=== PATIENT | female | born 1990 | race Caucasian/White ===

== ENCOUNTER → 2019-02-28 14:19 | Outpatient (CLI) | payer BC, SELFPAY ==
[2019-03-06 12:10] LABS: HPV Reflexed? NOT INDICATED
== END ==
PROVIDERS: Visit Provider Obstetrics & Gynecology
DX: Z12.4 Encounter for screening for malignant neoplasm of cervix (principal)
CPT/HCPCS: 88175; G0145

== ENCOUNTER → 2020-01-11 | Outpatient (CLI) | payer BC, SELFPAY ==
[2020-01-11 13:14] VITALS: BMI 32.5
[2020-01-11 16:19] LABS: Amphetamine Urine VISTA NEGATIVE (<1000 ng/mL); Barbiturate Urine VISTA NEGATIVE (< 200 ng/mL); Benzodiazepine Urine VISTA NEGATIVE (< 200 ng/mL); Cocaine Urine VISTA NEGATIVE (< 300 ng/mL); Ecstacy Urine VISTA NEGATIVE (< 500 ng/mL); Methadone Urine VISTA NEGATIVE (< 300 ng/mL); PCP Urine VISTA NEGATIVE (< 25 ng/mL); THC Urine VISTA NEGATIVE (< 50 ng/mL); Vista UDS pH Range 6
[2020-01-16 07:44] LABS: Chlamydia By Nucleic Acid AMP Negative (Negative)
[2020-01-16 08:05] LABS: Gonococcus By Nucleic Acid AMP Negative (Negative)
== END | disposition home or self-care (01) ==
LOC: LABSPEC 13:40
PROVIDERS: PCP Family Medicine; Referring Provider Obstetrics & Gynecology; Visit Provider Obstetrics & Gynecology
DX: Z34.00 Encounter for supervision of normal first pregnancy, unspecified trimester (principal)
CPT/HCPCS: 80307; 87086; 87088; 87491; 87591; 88175; G0145

== ENCOUNTER → 2020-02-02 12:55 | Outpatient (CLI) | payer BC, SELFPAY ==
[2020-01-11 13:14] VITALS: BMI 32.5
[2020-02-02] MEDS: Dextrose 5%-Lactated Ringers 1,000 ML 999 ML IV (13:04)
[2020-02-02 13:18] VITALS: BP 104/71; PULSE 84; RESP 16; TEMP 36.5; O2SAT 98; BMI 32.5
[2020-02-02] MEDS: Ondansetron 4 MG/2 ML Vial IV (13:21)
[2020-02-02 14:27] VITALS: BP 114/64; PULSE 72; RESP 18; TEMP 36.7; O2SAT 99
[2020-02-02] MEDS: proMETHazine 25 MG/ML Syringe 12.5 MG IV (14:29)
== END ==
PROVIDERS: PCP Family Medicine; Referring Provider Obstetrics & Gynecology; Visit Provider Obstetrics & Gynecology
DX: K74.60 Unspecified cirrhosis of liver (principal)
CPT/HCPCS: 96361; 96374; 96375; A4216; J2405

== ENCOUNTER → 2020-02-05 10:04 | Outpatient (CLI) | payer BC, SELFPAY ==
[2020-02-02 13:18] VITALS: BMI 32.5
[2020-02-05 10:32] LABS: Absolute Lymphocyte Count 1.93 X10^3/uL (0.83-4.51); Basophil# 0.02 X10^3/uL; Basophil% 0.3 % (0-1); Eosinophil# 0.06 X10^3/uL; Eosinophils% 0.8 % (0-5); Hematocrit 38.3 % (37-47); Hemoglobin 12.8 g/dL (12.0-15.0); Lymphocyte # 1.93 X10^3/ul (4.0); Lymphocyte % 25.5 % (19-41); Mean Corp Hgb Conc 33.4 g/dL (32-36); Mean Corpuscular Hgb 30.3 pg (27.0-32.0); Mean Corpuscular Volume 90.5 fL (81-99); Mean Platelet Vol. 9.1 fl (6.2-12.0); Monocyte# 0.56 X10^3/uL; Monocyte% 7.4 % (0-10); NRBC Flagged by Analyzer 0 % (0-5); Neutrophil # 4.98 X10^3/uL (2.7-7.7); Neutrophil % 65.6 % (47-70); Platelet Count 239 K/mm3 (150-450); RBC Distribution Width SD 39.6 fl (35.1-43.9); Red Blood Count 4.23 M/mm3 (4.2-5.4); White Blood Count 7.6 K/mm3 (4.4-11.0)
[2020-02-05 10:50] LABS: Glucose Challenge Gest 1H 50g 92 mg/dL (70-140)
[2020-02-05 11:23] LABS: HIV - WCH Non-Reactive (Nonreactive); Hepatitis B Surface Antigen Non-Reactive (Nonreactive); Hepatitis C Antibody Non-Reactive (Nonreactive)
[2020-02-08 02:11] LABS: Rapid Plasmin Reagin (RPR) NONREACTIVE (NONREACTIVE)
== END ==
PROVIDERS: PCP Family Medicine; Referring Provider Obstetrics & Gynecology; Visit Provider Obstetrics & Gynecology
DX: O99.210 Obesity complicating pregnancy, unspecified trimester (principal); Z3A.00 Weeks of gestation of pregnancy not specified
CPT/HCPCS: 36415; 82950; 85025; 86592; 86703; 86803; 86850; 86900; 86901; 87340

== ENCOUNTER → 2020-03-19 07:45 | Outpatient (CLI) | payer BC, SELFPAY ==
[2020-02-07 09:11] VITALS: BMI 31.8
[2020-03-04 08:20] VITALS: BMI 31.2
--- NOTE | 2020-03-19 07:46 | US_ITS ---
STUDY: SECOND AND THIRD TRIMESTER OBSTETRICAL ULTRASOUND REASON FOR EXAM: Female, 29 years old ANATOMY LMP: 11/07/2019. TECHNIQUE: Transabdominal and Transvaginal TECHNICAL QUALITY: Adequate. PRIOR ULTRASOUND: None. FINDINGS: There is a single intrauterine fetus. The fetus is in a breech presentation. There is demonstrated cardiac activity with a heart rate of 155 bpm. There is a normal amniotic fluid volume. The largest amniotic fluid pocket measures 4 cm x 4.8 cm. The amniotic fluid index (KEAGAN) is within normal limits. The placenta is posterior in location and is not low lying. There are Grade 1 placental changes. The cervix measures 5.6 cm in length. The adnexal regions are not visualized. BIOMETRY: BPD: 4.29 cm: 18 weeks, 6 days HC: 16.09 cm: 18 weeks, 6 days AC: 13.5 cm: 19 weeks, 0 days FL: 2.78 cm: 18 weeks, 3 days CI: 76.6% FL/BPD: 64.8% FL/HC: FL/AC: 20.5% HC/AC: 1.18 age by current US: 18 weeks, 6 days. INESSA by current US: 08/14/2020. Estimated weight: 258 grams, +/- 38 grams, 33.7 %. Age by LMP: 19 weeks, 0 days. INESSA by LMP: 08/13/2020. ANATOMY: Gender: Male Cranium: Normal lateral ventricles. Normal choroid plexus. Normal cerebellum. Normal cisterna magna. Normal face, nose and lips. Chest: Normal 4-chamber heart. Abdomen/Pelvis: Normal diaphragm. Normal stomach. Normal abdominal wall. Normal cord insertion. Normal 3 vessel cord. Normal kidneys. Normal bladder. Spine: Normal cervical spine. Normal thoracic spine. Normal lumbar spine. Normal sacrum. Extremities: Normal bilateral upper extremities. Normal bilateral lower extremities. US/OB Anatomy Scan IMPRESSION: Single live uterine gestation with mean gestational age of 18 weeks and 6 days. Electronically Signed: Jayy Hernandez, at 12:46 EST , Service support ,
== END ==
PROVIDERS: PCP Family Medicine; Referring Provider Obstetrics & Gynecology; Visit Provider Obstetrics & Gynecology
DX: O32.1XX0 Maternal care for breech presentation, not applicable or unspecified (principal); Z3A.18 18 weeks gestation of pregnancy
CPT/HCPCS: 76805; 76817

== ENCOUNTER → 2020-05-16 09:26 | Outpatient (CLI) | payer OTHER, SELFPAY ==
[2020-05-03 08:34] VITALS: BMI 31.4
[2020-05-16 09:55] LABS: Basophil# 0.03 X10^3/uL; Basophil% 0.4 % (0-1); Eosinophil# 0.04 X10^3/uL; Eosinophils% 0.5 % (0-5); Hematocrit 36.3 % (37-47); Mean Corp Hgb Conc 33.1 g/dL (32-36); Mean Corpuscular Volume 93.8 fL (81-99); Mean Platelet Vol. 9.3 fl (6.2-12.0); Monocyte% 8.2 % (0-10); NRBC Flagged by Analyzer 0 % (0-5); Neutrophil # 5.99 X10^3/uL (2.7-7.7); Neutrophil % 70.4 % (47-70); Platelet Count 276 K/mm3 (150-450); RBC Distribution Width CV 13.5 % (11.6-14.6); RBC Distribution Width SD 46.2 fl (35.1-43.9); Red Blood Count 3.87 M/mm3 (4.2-5.4); White Blood Count 8.5 K/mm3 (4.4-11.0)
[2020-05-16 10:04] LABS: Glucose Challenge Gest 1H 50g 103 mg/dL (70-140)
== END ==
PROVIDERS: PCP Family Medicine; Referring Provider Nurse Practitioner Women's Health; Visit Provider Nurse Practitioner Women's Health
DX: Z13.1 Encounter for screening for diabetes mellitus (principal); Z34.00 Encounter for supervision of normal first pregnancy, unspecified trimester
CPT/HCPCS: 36415; 82950; 85025

== ENCOUNTER → 2020-07-26 16:30 | Outpatient (CLI) | payer OTHER, SELFPAY ==
[2020-07-26 12:54] VITALS: BMI 32.9
== END ==
PROVIDERS: PCP Family Medicine; Referring Provider Obstetrics & Gynecology; Visit Provider Obstetrics & Gynecology
DX: Z34.00 Encounter for supervision of normal first pregnancy, unspecified trimester (principal)
CPT/HCPCS: 87081

== ENCOUNTER → 2020-07-30 11:53 | Outpatient (CLI) | payer OTHER, SELFPAY ==
[2020-07-26 12:54] VITALS: BMI 32.9
--- NOTE | 2020-07-30 11:54 | US_ITS ---
STUDY: SECOND AND THIRD TRIMESTER OBSTETRICAL ULTRASOUND - LIMITED REASON FOR EXAM: Female, 29 years old growth LMP: 11/07/2019. PRIOR ULTRASOUND: Comparison is made with prior study dated 03/19/2020. TECHNIQUE: Transabdominal TECHNICAL QUALITY: Adequate. FINDINGS: There is a single intrauterine fetus. The fetus is in a cephalic presentation. There is demonstrated cardiac activity with a heart rate of 135 bpm. There is a normal amniotic fluid volume. The largest amniotic fluid pocket measures 4.6 cm. The amniotic fluid index (KEAGAN) is 14.8 cm. The placenta is fundal in location. There are Grade 2 placental changes. The cervical measurement was not obtainable due to the head positioning. BIOMETRY: BPD: 9.08 cm: 36 weeks, 5 days HC: 32.65 cm: 37 weeks, 0 days AC: 32.36 cm: 36 weeks, 1 days FL: 7.17 cm: 36 weeks, 5 days Age by LMP: 38 weeks, 0 days. INESSA by LMP: 08/13/2020. age by prior US: 37 weeks, 6 days. INESSA by prior US: 08/14/2020. age by current US: 36 weeks, 6 days. INESSA by current US: 08/21/2020. Estimated weight: 2987 grams, +/- 148 grams, 28 percentile. US/OB Limited With Biometrics IMPRESSION: Single live intrauterine gestation with a mean gestational age of 37 weeks and 6 days. The measurements obtained today following within the normal expected range. Electronically Signed: Jayy Hernandez MD at 14:56 EDT , Service support ,
== END ==
PROVIDERS: PCP Family Medicine; Referring Provider Obstetrics & Gynecology; Visit Provider Obstetrics & Gynecology
DX: O98.513 Other viral diseases complicating pregnancy, third trimester (principal); U07.1 COVID-19; Z3A.00 Weeks of gestation of pregnancy not specified
CPT/HCPCS: 76816

== ENCOUNTER → 2020-08-08 08:45 | Outpatient (CLI) | payer OTHER, SELFPAY ==
[2020-08-08 08:13] VITALS: BMI 32.9
--- NOTE | 2020-08-08 08:49 | US_ITS ---
STUDY: SECOND AND THIRD TRIMESTER OBSTETRICAL ULTRASOUND - LIMITED REASON FOR EXAM: Female, 29 years old KEAGAN only due to uterine date size discrepancy LMP: 11/07/2019. PRIOR ULTRASOUND: Comparison is made with prior study dated 07/30/2020. TECHNIQUE: Transabdominal TECHNICAL QUALITY: Adequate. FINDINGS: There is a single intrauterine fetus. The fetus is in a cephalic presentation. There is demonstrated cardiac activity with a heart rate of 132 bpm. There is a normal amniotic fluid volume. The largest amniotic fluid pocket measures 3.5 cm. The amniotic fluid index (KEAGAN) is 9.5 cm. The placenta is fundal in location. There are Grade 3 placental changes. Age by LMP: 39 weeks, 2 days. INESSA by LMP: 08/13/2020. US/OB Limited (No Biometrics) IMPRESSION: Normal amniotic fluid index. Electronically Signed: Jayy Hernandez MD at 9:51 EDT , Service support ,
== END ==
PROVIDERS: PCP Family Medicine; Referring Provider Obstetrics & Gynecology; Visit Provider Obstetrics & Gynecology
DX: O26.849 Uterine size-date discrepancy, unspecified trimester (principal); Z3A.00 Weeks of gestation of pregnancy not specified
CPT/HCPCS: 76815

== ENCOUNTER 2020-08-15 09:40 | Outpatient (CLI) | payer OTHER, SELFPAY ==
[2020-08-15 08:47] VITALS: BMI 33.3
[2020-08-15 09:59] VITALS: PULSE 90; O2SAT 99
[2020-08-15 10:04] VITALS: BP 127/79; PULSE 90
[2020-08-15 10:10] VITALS: BMI 33.1
[2020-08-15 10:19] VITALS: BP 122/80; PULSE 86
[2020-08-15 10:30] LABS: Hematocrit 37.5 % (37-47); Hemoglobin 12.5 g/dL (12.0-15.0); Mean Corp Hgb Conc 33.3 g/dL (32-36); Mean Corpuscular Hgb 30.9 pg (27.0-32.0); Mean Corpuscular Volume 92.6 fL (81-99); Mean Platelet Vol. 9.3 fl (6.2-12.0); Platelet Count 274 K/mm3 (150-450); RBC Distribution Width SD 43.9 fl (35.1-43.9); Red Blood Count 4.05 M/mm3 (4.2-5.4); White Blood Count 10.5 K/mm3 (4.4-11.0)
[2020-08-15 10:34] VITALS: BP 118/79; PULSE 74
[2020-08-15 10:42] LABS: AST(SGOT) 13 U/L (15-37); Alanine Aminotransfer ALT/SGPT 18 U/L (13-56); Creatinine, Serum 0.59 mg/dL (0.55-1.02); EST Glomerular Filtration Rate 127 mL/min (>60); Est Glom Filt Rate - Afr Amer 154 mL/min (>60); Estimated Creatinine Clearance 131.71 ml/min; Uric Acid 3.3 mg/dL (2.6-6.0)
[2020-08-15 10:43] LABS: Protein, Urine (Random) 9.7 mg/dL (<11.9); Protein:Creat Ratio 346 mg/g CRE (0-200)
[2020-08-15 10:49] VITALS: BP 117/71; PULSE 76
--- NOTE | 2020-09-03 10:06 | OB.TRI.PN ---
Progress Notes Date of Service: 08/15/20 Progress Note: Patient presents for triage evaluation secondary to elevated blood pressure. PreE labs negative. BPs normal. FHT: Moderate variability reactive no decelerations category I tracing [place]: Irregular Contractions Assessment and plan: Reactive NST, reassuring maternal and status patient discharged to home to follow-up next scheduled visit. See problem list details for additional plan information. Laboratory Studies: Laboratory Tests 08/15/20 08/15/20 08/15/20 Range/Units 10:15 10:15 10:00 WBC 10.5 (4.4-11.0) K/mm3 RBC 4.05 L (4.2-5.4) M/mm3 Hgb 12.5 (12.0-15.0) g/dL Hct 37.5 (37-47) % MCV 92.6 (81-99) fL MCH 30.9 (27.0-32.0) pg MCHC 33.3 (32-36) g/dL RDW Std Deviation 43.9 (35.1-43.9) fl RDW Coeff of Diana 13.0 (11.6-14.6) % Plt Count 274 (150-450) K/mm3 MPV 9.3 (6.2-12.0) fl Creatinine 0.59 (0.55-1.02) mg/dL Estim Creat Clear Calc 131.71 ml/min Est GFR (MDRD) Af Amer 154 (>60) mL/min Est GFR (MDRD) Non-Af 127 (>60) mL/min Uric Acid 3.3 (2.6-6.0) mg/dL AST 13 L (15-37) U/L ALT 18 (13-56) U/L U Random Total Protein 9.7 (<11.9) mg/dL Urine Creatinine 28.00 (NO RANGE EST.) mg/dL Protein/Creatinin Ratio 346 H (0-200) mg/g CRE Procedures Urinary/Genital 52xxx-59xxx: [id number] non-stress test Interp
== END 2020-08-15 11:10 | disposition home or self-care (01) ==
LOC: WPOUT 09:45 → WP 09:46
PROVIDERS: PCP Family Medicine; Referring Provider Obstetrics & Gynecology; Visit Provider Obstetrics & Gynecology
DX: O26.899 Other specified pregnancy related conditions, unspecified trimester (principal); R03.0 Elevated blood-pressure reading, without diagnosis of hypertension; Z3A.00 Weeks of gestation of pregnancy not specified
CPT/HCPCS: 36415; 59025; 59050; 82565; 82570; 84156; 84450; 84460; 84550; 85027; 99218; G0378

== ENCOUNTER 2020-08-19 18:55 | Inpatient (IN) | payer OTHER, SELFPAY ==
[2020-08-19 19:12] VITALS: BMI 33.9
[2020-08-19 19:29] VITALS: PULSE 204; PULSE 90; O2SAT 97; O2SAT 99
[2020-08-19 19:30] VITALS: BP 128/91; PULSE 93
[2020-08-19 19:40] VITALS: BP 126/81; PULSE 96
[2020-08-19 20:01] LABS: Absolute Lymphocyte Count 2.37 X10^3/uL (0.83-4.51); Absolute Neutrophil Count 7.3 X10^3/uL (2.0-7.7); Basophil# 0.04 X10^3/uL; Basophil% 0.4 % (0-1); Eosinophil# 0.06 X10^3/uL; Eosinophils% 0.6 % (0-5); Hematocrit 36.6 % (37-47); Hemoglobin 12.3 g/dL (12.0-15.0); Lymphocyte # 2.37 X10^3/ul (0.83-4.51); Lymphocyte % 22.5 % (19-41); Mean Corp Hgb Conc 33.6 g/dL (32-36); Mean Corpuscular Hgb 31.1 pg (27.0-32.0); Mean Corpuscular Volume 92.7 fL (81-99); Mean Platelet Vol. 9.3 fl (6.2-12.0); Monocyte# 0.67 X10^3/uL; Monocyte% 6.4 % (0-10); NRBC Flagged by Analyzer 0 % (0-5); Neutrophil # 7.31 X10^3/uL (2.7-7.7); Neutrophil % 69.3 % (47-70); Platelet Count 306 K/mm3 (150-450); RBC Distribution Width CV 12.7 % (11.6-14.6); RBC Distribution Width SD 43.6 fl (35.1-43.9); Red Blood Count 3.95 M/mm3 (4.2-5.4); White Blood Count 10.5 K/mm3 (4.4-11.0)
[2020-08-19] MEDS: miSOPROStol 25 MCG TABLET VAGINAL (20:24)
--- NOTE | 2020-08-19 20:45 | HP.PCM.OB_ITS ---
HPI - General General Date of Admission: 08/19/20 HPI Narrative GLORY FREEDMAN, is a 29 F who presents for induction of labor secondary to postdates. Patient has had an uncomplicated denies any vaginal bleeding or loss of fluid admits good movement denies any regular con tractions. Maternal Data Information INESSA Calculator Estimated Delivery Date Method Current WG Current Estimate 08/13/20 LMP (Certain) 40w 6d PFSH Medical History Abnormal Pap smear of cervix Anxiety Depression Environmental allergies Frequent headaches Hx of migraines Home Medications fexofenadine 180 mg tablet 180 mg PO QDAY 03/16/17 [History Last Taken 08/18/20] bupropion HCl 150 mg 24 hr tablet, extended release 150 mg PO QAM 04/13/17 [History Last Taken 08/18/20] buspirone 10 mg tablet 10 mg PO BID 01/04/20 [History Last Taken 08/18/20] multivitamin no.47-iron fum 27 mg-folate no.1 1 mg-dha 300 mg capsule 1 cap PO DAILY 01/04/20 [History Last Taken 08/18/20] aspirin [Aspir-81] 81 mg PO DAILY 08/15/20 [History Last Taken 08/19/20 15:00] ondansetron HCl 8 mg PO DAILY 08/19/20 [History Last Taken 3 Days Ago ~08/16/20] Allergy/AdvReac Type Severity Reaction Status Date / Time penicillin G Allergy Mild Unknown Verified 08/15/20 10:11 Surgical History History of wisdom tooth extraction, class II edentulism Social History household members: spouse current occupational status: employed pets and animals: Yes Smoking Status: Former smoker second hand exposure: No alcohol intake: current details: social substance use type: does not use caffeine: Yes frequency: 3-4 times per week seatbelt use: always do you feel safe at home: Yes additional social history: Andrew- gravel truck driver patient works at [employer] History 1 Elective abortions Hx Para 0 Spontaneous abortions Hx # Term Pregnancies Ectopic pregnancies Hx # Pregnancies Multiple births # of living children Visit Details Expected Delivery Route/Plan - IOL 08/19 if no labor Labor Preferences- CB/BF classes: did some online labor support person: Andrew labor intervention preferences: none pain management options preferred: epidural cut cord/dad catch: maybe : yes PP control planned:wants tubal while in hospital discussed possible routes of delivery and associated risks: discussed possible delivery modalities and possible indications for each including R/B/A of , VAVD, and CS. questions answered. special requests: Plans flu vaccine: given tdap vaccine: given rhogam: na LARC form signed: yes movement and labor precautions reviewed. Problem list reviewed and updated with the most current plan of care details and appropriate orders placed. Relevant counseling for the gestational age provided. Continue routine care and follow up unless otherwise noted in visit notes/problem list details OB Flowsheet Initial Weight: 201 lb Date -?-?-?-?-?-?-?-?-?-?-?-?- EGA Weight BP Urine Prot -?-?-?-?-?-?-?-?-?-?-?-?- Glucose FHR FuHt Pres Dilation -?-?-?-?-?-?-?-?-?-?-?-?- Effaced St Visit Note 01/11/20 -?-?-?-?-?-?-?-?-?-?-?-?- 9w 2d 201 lb 8 oz (+8 oz) 116/78 116/78 -?-?-?-?-?-?-?-?-?-?-?-?- 165 -?-?-?-?-?-?-?-?-?-?-?-?- GP - CRL 18mm co nsistent with LMP. 02/07/20 -?-?-?-?-?-?-?-?-?-?-?-?- 13w 1d 197 lb (-4 lb) 116/82 Negative -?-?-?-?-?-?-?-?-?-?-?-?- Negative 160 -?-?-?-?-?-?-?-?-?-?-?-?- SM- no vb lof cr amping SM- no vb lof cramping. dec lined testing. 03/04/20 -?-?-?-?-?-?-?-?-?-?-?-?- 16w 6d 193 lb 8 oz (-7 lb 8 oz) 120/76 Negative -?-?-?-?-?-?-?-?-?-?-?-?- Negative 150 -?-?-?-?-?-?-?-?-?-?-?-?- GP - No cramping or bleeding. Still having nausea. Encouraged small frequent meals. Discussed scheduling zofran. 04/04/20 -?-?-?--?-?-?-?-?-?-?-?-?- 21w 2d 191 lb 2 oz (-9 lb 14 oz) 110/86 Negative -?-?-?-?-?-?-?-?-?-?-?-?- Negative 148 -?-?-?-?-?-?-?-?-?-?-?-?- MH-still with cris carrasco. Inés works best. Enc to take q6hr and may take 2 tabs. Refills sent. No VB, LOF. Some flutters. 05/03/20 -?-?-?-?-?-?-?-?-?-?-?-?- 25w 3d 195 lb (-6 lb) 104/70 Negative -?-?-?-?-?-?-?-?-?-?-?-?- Negative 145 25 -?-?-?-?-?-?-?-?-?-?-?-?- SM- n ovb lof go od fm no regular ctx 05/22/20 -?-?-?-?-?-?-?-?-?-?-?-?- 28w 1d 197 lb (-4 lb) 126/78 Negative -?-?-?-?-?-?-?-?-?-?-?-?- Negative 147 28 -?-?-?-?-?-?-?-?-?-?-?-?- -No VB, LOF. G ood FM. Reviewed nl 28 wk labs. Tdap, larc 06/06/20 -?-?-?-?-?-?-?-?-?-?-?-?- 30w 2d 196 lb (-5 lb) 130/80 Negative -?-?-?-?-?-?-?-?-?-?-?-?- Negative 145 30 -?-?-?-?-?-?-?-?-?-?-?-?- SM- no vb lof go od fm no regular ctx, unable to take CB classes 06/20/20 -?-?-?-?-?-?-?-?-?-?-?-?- 32w 2d 199 lb (-2 lb) 118/74 Negative -?-?-?-?-?-?-?-?-?-?-?-?- Negative 150 32 Cephalic -?-?-?-?-?-?-?-?-?-?-?-?- SM- no vb lof go od fm no regular ctx 07/02/20 -?-?-?-?-?-?-?-?-?-?-?-?- 34w 0d 200 lb 6 oz (-10 oz) 128/82 Negative -?-?-?-?-?-?-?-?-?-?-?-?- Negative 126 34 -?-?-?-?-?-?-?-?-?-?-?-?- -No Vb, LOF. G ood FM. No reg CTX. -No Vb, LOF. Good FM. No reg CTX. Will discuss meds with GP 07/26/20 -?-?-?-?-?-?-?-?-?-?-?-?- 37w 3d 204 lb (+3 lb) 124/78 Negative -?-?-?-?-?-?-?-?-?-?-?-?- Negative 130 37 -?-?-?-?-?-?-?-?-?-?-?-?- GP - no LOF, VB, DFM, ctx. +COVID last week - growth ordered for next week. 08/01/20 -?-?-?-?-?-?-?-?-?-?-?-?- 38w 2d 203 lb (+2 lb) 120/88 Negative -?-?-?-?-?-?-?-?-?-?-?-?- Negative 130 38 Cephalic 0 -?-?-?-?-?-?-?-?-?-?-?-?- SM- no vb lof go od fm no regular ctx 08/08/20 -?-?-?-?-?-?-?-?-?-?-?-?- 39w 2d 207 lb (+6 lb) 120/82 Negative -?-?-?-?-?-?-?-?-?-?-?-?- Negative 130 36 Cephalic 1 -?-?-?-?-?-?-?-?-?-?-?-?- 10 -4 SM- no vb lof good fm no regular ctx. low FH recommend KEAGAN today, nl growth 2 weeks ago 08/15/20 -?-?-?-?-?-?-?-?-?-?-?-?- 40w 2d 206 lb 8 oz (+5 lb 8 oz) 128/92 Negative -?-?-?-?-?-?-?-?-?-?-?-?- Negative 120 37 Cephalic 1 -?-?-?-?-?-?-?-?-?-?-?-?- 40 -4 GP - no LO F, VB, DFM, ctx. Discussed IOL. GP - no LOF, VB, DFM, ctx. D iscussed IOL 08/19. Sent to triage for BPs. If not induced today, IOL Wednesday08/19/20 -?-?-?-?-?-?-?-?-?-?-?-?- 40w 6d 210 lb 1.608 oz (+9 lb 1.608 oz) 128/91 126/81 -?-?-?-?-?-?-?-?-?--?-?-?- -?-?-?-?-?-?-?-?-?-?-?-?- NST FHR Rate Baby A Baseline: 130 Variability:: Moderate Accelerations:: 15 x 15 Decelerations:: None NST Reactive:: Yes FHR Category:: Category I Uterine Activity:: irregular ROS Constitutional Constitutional: Reports systems reviewed and no addt'l complaints, except as documented Eyes Eyes: Denies change in vision ENT HEENT: Reports systems reviewed and no addt'l complaints, except as documented; Denies headache(s) Cardiovascular Cardiovascular: Reports systems reviewed and no addt'l complaints, except as documented; Denies chest pain or dyspnea Respiratory/Chest Respiratory/Chest: Reports systems reviewed and no addt'l complaints, except as documented Gastrointestinal Gastrointestinal: Reports systems reviewed and no addt'l complaints, except as documented; Denies abdominal pain Genitourinary Genitourinary: Reports systems reviewed and no addt'l complaints, except as documented, contractions Details: present (irregular) and movement Details: present; Denies dysuria or genital lesions Musculoskeletal Musculoskeletal: Reports systems reviewed and no addt'l complaints, except as documented Neurologic Neurologic: Reports systems reviewed and no addt'l complaints, except as documented Endocrine Endocrinology: Reports systems reviewed and no addt'l complaints, except as documented Vital Signs Vital Signs Vital Signs: 08/19/20 19:29 08/19/20 19:30 08/19/20 19:40 Pulse Rate 90 93 96 Blood Pressure 128/91 H 126/81 H BP Systolic 128 126 BP Diastolic 91 81 Pulse Ox 97 Physical Exam Const alert, oriented x3, no apparent distress and healthy appearing HEENT normocephalic and moist oral mucous membranes Head and Scalp: atraumatic Neck full ROM, no lymphadenopathy, supple and thyroid normal General: trachea midline Lymph Lymphatic: no lymphadenopathy noted Chest inspection of chest normal Resp normal respiratory effort Cardio regular rate GI normal to inspection, nondistended, normoactive bowel sounds, soft to palpation and non-tender Inspection: gravid external exam normal Manual OB Exam: estimated gestational size appropriate, presentation cephalic, dilated, effaced and station Extremity normal to inspection General Extremity: Negative for edema Skin no rashes or lesions noted Neuro no focal motor deficits and deep tendon reflexes 2+ bilaterally Motor Exam: strength 5/5 throughout and clonus absent Psych mental status grossly normal Labs Labs Labs: Blood Type A POSITIVE Antibody Screen NEGATIVE Hct 36.6 % (37-47) L Hgb 12.3 g/dL (12.0-15.0) Obstetrics US Rubella IgG Antibody Pending Hep Bs Antigen Non-Reactive (Nonreactive) Neisseria gonorrhoeae DNA (JAVAN) Negative (Negative) HIV 1&2 Antibody Non-Reactive (Nonreactive) Glucose 1 Hr 50 gm 103 mg/dL (70-140) Assessment & Plan (1) Fundal height low for dates in third trimester: COMMENT: keagan ordered (2) negative GBS: (3) Tubal ligation evaluation: COMMENT: Desires PPBTL while in hospital (4) COVID-19 affecting in third trimester: COMMENT: positive 07/16, on ASA, growth US (5) 35 weeks gestation of : COMMENT: COVID test order CANCELLED, positive 07/16/20 (6) History of tetanus, diphtheria, and acellular pertussis booster vaccination (Tdap): COMMENT: 05/22/20 (7) Anxiety and depression: COMMENT: currently on Wellbutrin BID (category B) and Buspar BID (category B). 05/22 stable; 07/02 stable (8) Supervision of normal first : QUALIFIERS: Trimester: third trimester Qualified Code(s): Z34.03 - Encounter for supervision of normal first , third trimester COMMENT: PRR INESSA 08/13/20 boy Migel Spouse: Andrew (9) Abnormal Pap smear of cervix: QUALIFIERS: Abnormal Pap type: ASC-US Qualified Code(s): R87.610 - Atypical squamous cells of undetermined significance on cytologic smear of cervix (ASC-US) COMMENT: neg colposcopy (10) : QUALIFIERS: Weeks of gestation: 40 weeks Qualified Code(s): Z3A.40 - 40 weeks gestation of COMMENT: declined genetic,carrier and NTD, anatomy nl PLAN: Patient presents IOL, plan management for with .cytotec then pitocin Pain management: plans epidural. GBS negative. Management of any complications: none I have reviewed the [facility] and made any clinically relevant updates.
[2020-08-20] VITALS (48 sets, daily range): BP systolic 97–128; BP diastolic 51–88; PULSE 65–92; RESP 14–18; TEMP 35.9–36.8; O2SAT 83–100
[2020-08-20] MEDS: miSOPROStol 25 MCG TABLET 50 MCG VAGINAL ×2 (00:27→06:30)
[2020-08-20] MEDS: Acetaminophen 325 MG Tablet PO (06:43)
[2020-08-20] MEDS: Lactated Ringers 500 ML 999 ML IV ×2 (09:20→11:28)
[2020-08-20] MEDS: Lactated Ringers 1,000 ML 50 ML IV (09:51)
[2020-08-20 10:05] LABS: Rubella IgG Reactive (Nonreactive)
[2020-08-20] MEDS: fentaNYL-bupivacaine (epidural) 100 ML BAG EPIDURAL (10:35)
[2020-08-20] MEDS: Terbutaline 1 MG/ML Vial 0.25 MG SC (11:25)
--- NOTE | 2020-08-20 11:36 | PN_ITS ---
Progress Note heart rate deceleration to the 80s to 90s with spontaneous rupture membranes and suspected uterine hyperstimulation. Fluid bolus position changes and dose of terbutaline given. Internal monitors placed. Good recovery with heart tone 120s moderate variability continue expectant management. Status post last Cytotec dose at 630 this morning no Pitocin going at this time. Communication with Dr. Tasneem Lainez for backup in case of emergency and aditional support is needed. current tracing: FHT: 120 Moderate variability cat II [place]: irregular Contractions reviewed tracing abnormalities since last note: see above A/P: continue expectant managemet with recovery
--- NOTE | 2020-08-20 12:27 | PLAC_PTH ---
PATIENT: GLORY FREEDMAN LOC: WP U#:[id number] AGE/SX: 29/F ROOM: WP003 RE08/19/[address]: Dr. Mary Serrato MD : 1990 BED: 1 DIS: 08/22/2020 SPEC #: [id number] RECD: 08/20/20 13:37 STATUS: RUBIN REEber #: [id number] MARLON: 08/20/20 12:[address]: Mary Serrato DEPT: SURGICAL PATHOLOGY RECD BY: Tita Yanez ENTERED: 08/21/20 09:45 SP TYPE: PLACENTA OTHR DR: Dr. Elba Mendoza, DO Tissues: A - Placenta, NOS B - Fallopian tube Procedures: Surgery Specimen Level II Surgery Specimen Level V HEADER OPERATION: Primary section; tubal ligation PRE-OP DIAGNOSIS: Sterilization TISSUE SUBMITTED: A ? Placenta, B ? Fallopian tubes, suture in right tube MICROSCOPIC DIAGNOSIS A. 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 trivascular with no evidence of inflammation. Placental membranes ? mild acute chorioamnionitis and pigmented macrophages suggestive of meconium staining. Placental disc - succenturiate lobes, Mekhi-Lokesh change and mild chronic decidual inflammation. B. Right and left fallopian tubes, bilateral salpingectomies: Right fallopian tube ? complete segment with no pathologic change. Left fallopian tube ? complete segment with no pathologic change. AM:stevo 08/23/2020 MICROSCOPIC DESCRIPTION Slides are reviewed. GROSS DESCRIPTION A - SPECIMEN: PLACENTA / CLINICAL INFORMATION: A. Weight: 3.34 kg B. Gestational Age: 41 weeks C. Sex: Male PLACENTAL WEIGHT (POST FIXATION): 413 gm PLACENTAL DIMENSIONS: The main portion of the lobe of the placenta measures 15 x 15 x 3.5 cm. PLACENTAL SHAPE: Usual ovoid with two succenturiate lobes. The succenturiate lobes measure 6 x 5 x 1 cm and 6 x 5 x 2 cm. PLACENTAL WEIGHT FOR GESTATIONAL AGE: Within 10-99th percentile MEMBRANES - Present A. Insertion: Marginal B. Site of rupture from edge: 6 cm from edge of placental disc C. Color of membrane: Frias-mucoidy D. Abnormalities: None UMBILICAL CORD - Present A. Color: Frias-mcdowell B. Insertion: Central C. Length: 33 cm D. Diameter: 1 cm E. Number of vessels: Three F. Abnormalities: A focal area of increased spiraling is noted. PLACENTAL DISC - Present A. Color of surface: Frias-mcdowell B. surface abnormalities: None C. Maternal cotyledons: Intact with minimal tears D. Attached retro placental clot: No clot E. Cut surface: Dark red and spongy F. Lesions: None G. Separate clot: Absent SECTIONS SUBMITTED: 1. Membrane roll 2. Cord, maternal end, succenturiate lobe 3. Cord, end, succenturiate lobe 4. Placental disc, and maternal surfaces 5. Placental disc, and maternal surfaces 6. Placental disc, and maternal surfaces SJ:stevo 08/22/2020 B - Received in fixative is one container labeled with the patient's name and designated bilateral fallopian tubes, suture in right tube. The specimen consists of bilateral fallopian tubes including fimbrial ends. The right fallopian tubes measures 5.5 cm in length and 1 cm in diameter and the left tube measures 4 cm in length and 0.8 cm in diameter. Sections reveal unremarkable cut surfaces. Cemetery Worker sections are submitted in two cassettes as follows: 1 ? right fallopian tube, 2 ? left fallopian tube. / SHIN:stevo 08/21/20 TC:2 CPT: 22656, 09136 x2
[2020-08-20] MEDS: Ketorolac 30 MG/ML Syringe IV ×2 (13:17→18:12)
[2020-08-20 13:34] LABS: Pathology Specimen OB SEE PATHOLOGY REPORT
--- NOTE | 2020-08-20 13:34 | OP.PCM_ITS ---
Assessment & Plan (1) Status post bilateral salpingectomy: (2) bradycardia: (3) Delivery by section: COMMENT: SHM/SM 5 cm recurrent decels, bradycardia. 41 IOL (4) Tubal ligation evaluation: COMMENT: Desires PPBTL while in hospital (5) COVID-19 affecting in third trimester: COMMENT: positive 07/16, on ASA, growth US (6) 35 weeks gestation of : COMMENT: COVID test order CANCELLED, positive 07/16/20 (7) Anxiety and depression: COMMENT: currently on Wellbutrin BID (category B) and Buspar BID (category B). 05/22 stable; 07/02 stable (8) Supervision of normal first : QUALIFIERS: Trimester: third trimester Qualified Code(s): Z34.03 - Encounter for supervision of normal first , third trimester COMMENT: PRR INESSA 08/13/20 sara Lainez Spouse: Andrew (9) : QUALIFIERS: Weeks of gestation: 40 weeks Qualified Code(s): Z3A.40 - 40 weeks gestation of COMMENT: declined genetic,carrier and NTD, anatomy nl Maternal Data Information INESSA Calculator Estimated Delivery Date Method Current WG Current Estimate 08/13/20 LMP (Certain) 41w 0d Final INESSA Source: LMP Details Operative Information Date of Procedure: 08/20/20 Pre-Operative Diagnosis: Induction of labor postdates desired sterilization Post-Operative Diagnosis: same Indications for : Desires elective sterilization and Nonreassuring Status Indications Narrative: 29-year-old /0 presented at 41 weeks for induction of labor secondary to postdates. Patient underwent Cytotec induction of labor and then had a Nieves bulb placed. Patient proceed to 5 cm dilation and had spontaneous rupture of membranes that showed light meconium. She then developed recurrent late decelerations and then despite interventions including fluid bolus, position changes, terbutaline for hyperstimulation initially, and oxygen the tracing was persistent and therefore the decision was made to proceed with immediate delivery which was via stat . Classification: Stat Procedure Type: bilateral salpingectomy histology manager #1: Alfred Corrales Type of Anesthesia: Epidural Special Medications: ann Antibiotic Given: Clindamycin 600mg IV x1 and Gentamicin 1.5mg/kg IV x1 and Zithromax 500 mg/5 mL X1 Drain: Nieves to straight drain Estimated Blood Loss: 600 Fluids Replaced: crystalloid Findings Description of Procedure: Patient was brought to the back and evaluated. Due to Dr. Serrato being initially scrubbed in to another case Dr. Tasneem Lainez was present for evaluation. After evaluation the decision was made to proceed with a stat . Patient was prepped and draped in the normal sterile fashion. Pfannenstiel skin incision was made with the scalpel and carried through to the underlying layer of fascia with the scalpel. Fascia was nicked in the midline and the incision extended laterally. The peritoneum was entered digitally. The incision was stretched and a low transverse uterine incision was made with the scalpel. The 's head was delivered atraumatically followed by the anterior and posterior shoulders without complication the rest of the infant delivered. The cord was clamped and cut and the was handed off to awaiting nurse. The placenta was delivered spontaneously immediately following and was noted to be intact and have a three- vessel cord. The uterus was exteriorized cleared of all clots and debris, and the incision was closed in a double layer closure using #1 Monocryl. The ovaries and fallopian tubes were noted to be within normal limits. At this time Dr. Serrato proceeded to scrub and and Dr. Sonja Lainez scrubbed out. Verbal handoff was made to review all findings. The uterus was returned to the maternal abdomen and gutters were cleared of all clots and debris. ann applied to incision. The peritoneum was closed with 3-0 Monocryl in a running fashion. Gloves were changed prior to fascial closure. Fascia was closed with 0 PDS in a running fashion. Subcutaneous tissue was copiously irrigated and the skin was closed with 3-0 Monocryl in a subcuticular fashion. Mepilex dressing was applied without complication. Patient was taken to recovery in stable condition. Placenta Disposition: [facility] Cord Vessel Description: 3 Vessels Cord Entanglement: None Delayed Cord Clamping: Yes Complications Risks of Surgery Discussed w/Patient: Bleeding, Infection, Need for Future C-S ections and Injury to surrounding structure(s) including bowel and bladder Vaginal Delivery Complication Complications: None Admit VTE Documentation VTE Present on Admission: No VTE Mechan Device Prophylaxis: SCD's Procedures Urinary/Genital [id number]: [id number] Delivery [facility]
[2020-08-20] MEDS: Oxytocin 30 units/NS 500 ml 30 UNITS/500 ML IV.SOLN 167 UNITS IV (13:35)
[2020-08-20 13:42] LABS: Pathology Specimen OB SEE PATHOLOGY REPORT
--- NOTE | 2020-08-20 14:31 | DCINST_ITS ---
Discharge Instructions Diet Discharge Diet: No restrictions Activity Discharge Activity: May Not Drive (for 2 weeks), May not drive while taking narcotic pain medications., May Shower and May Take a Tub Bath (in 7 days) May shower in (days): 0 May resume sexual activity in: 4-6 weeks Weight Bearing Status: Full weight bearing Lifting Restrictions: 20 pounds Dressing / Incision Call your doctor if your incision/area has: Continuous Slow Oozing, Sudden Increased Bleeding, Increased Pain/ Swelling, Increased Redness and Foul Smel ling Discharge Call your doctor if you observe: Fever of 101 or Higher and Using more than one pad per hour (for 2 hours) Suture Line Care: Avoid Pulling/Pushing and Avoid Pinching/Bending Cleanse incision/area with: Soap & Water and Keep Dressing Clean & Dry Follow Up Care Please Follow Up With: Mary Serrato MD When: Call [phone] to make an appointment for an incision check in 1-2 weeks. Test Results: Test results from this visit will be discussed in further detail at your follow-up appointment, if applicable. Discharge Plan Admission Admit Date/Time: 08/19/20 18:55 Primary Reason for Your Visit: delivery Attending Provider: Mary Serrato Primary Care Provider: Elba Mendoza Discharge Orders/Prescriptions Prescriptions: New naproxen 250 MG tablet 250 - 500 mg PO Q8H PRN PRN (Reason: MILD PAIN) Qty: 30 RF: 1 oxycodone-acetaminophen [Endocet] 5-325 mg tablet 1 tab PO Q4H PRN (Reason: pain) 7 Days Qty: 20 RF: 0 Continued fexofenadine [Trinh Allergy] 180 mg tablet 180 mg PO QDAY RF: 0 bupropion HCl [Wellbutrin XL] 150 mg tablet extended release 24 hr 150 mg PO QAM RF: 0 PNV-DHA 27 mg iron-1 mg -300 mg capsule 1 cap PO DAILY RF: 0 buspirone 10 mg tablet 10 mg PO BID RF: 0 Discontinued aspirin [Aspir-81] 81 mg Tablet,Delayed Release (Dr/Ec) 81 mg PO DAILY RF: 0 ondansetron HCl 8 mg tablet 8 mg PO DAILY RF: 0 Referrals / Follow Up: Elba Mendoza DO [Primary Care Provider] - Mary Serrato MD [STAFF PHYSICIAN] -
[2020-08-20] MEDS: Lactated Ringers 1,000 ML 100 ML IV ×2 (17:00→17:01)
[2020-08-20] MEDS: Acetaminophen 500 MG Tablet 1000 MG PO (18:11)
[2020-08-20] MEDS: busPIRone 5 MG Tablet 10 MG PO (22:50)
[2020-08-21 00:07] VITALS: BP 108/53; PULSE 87; RESP 16; O2SAT 96
[2020-08-21] MEDS: Acetaminophen 500 MG Tablet 1000 MG PO ×4 (00:14→18:41)
[2020-08-21] MEDS: Ketorolac 30 MG/ML Syringe IV ×2 (00:15→06:07)
[2020-08-21] MEDS: 0.9% Saline Lock 10 ML Syringe IV ×2 (00:15→06:07)
[2020-08-21 05:16] VITALS: BP 106/64; PULSE 79; RESP 18
[2020-08-21 05:50] LABS: Hematocrit 31.4 % (37-47); Hemoglobin 10.2 g/dL (12.0-15.0); Mean Corp Hgb Conc 32.5 g/dL (32-36); Mean Corpuscular Hgb 30.5 pg (27.0-32.0); Mean Platelet Vol. 9.2 fl (6.2-12.0); Platelet Count 267 K/mm3 (150-450); RBC Distribution Width CV 12.9 % (11.6-14.6); RBC Distribution Width SD 44.9 fl (35.1-43.9); Red Blood Count 3.34 M/mm3 (4.2-5.4)
[2020-08-21 09:00] VITALS: BP 107/68; PULSE 92; RESP 16; TEMP 36.4
[2020-08-21] MEDS: Senna/Docusate Sodium 1 Tablet PO (11:16)
[2020-08-21 13:30] VITALS: BP 99/51; PULSE 82; RESP 16; TEMP 36.9
--- NOTE | 2020-08-21 13:37 | PCM.PN.OB ---
Subjective Subjective Patient doing well without complaints. Tolerating PO. Ambulating and voiding without difficulty. Breast feeding well. Denies chest pain, shortness of breath, calf pain/swelling, fevers, chills, lightheadedness. Objective Data Objective Data Vital Signs: Vital Signs Temp Pulse Resp BP Pulse Ox 97.6 F L 92 16 107/68 96 08/21/20 09:00 08/21/20 09:00 08/21/20 09:00 08/21/20 09:00 08/21/20 00:07 Oxygen Delivery Method Room Air Weight: 210 lb 1.608 oz Body Mass Index (BMI) 33.9 Intake & Output: Intake and Output for Last 24 Hours 08/19/20 08/20/20 08/21/20 23:59 23:59 23:59 Intake Total 3072.66 / 3072.66 Output Total 700 / 700 50 / 50 Balance 2372.66 / 2372.66 -50 / -50 Lab / Micro Data Result Diagrams: 08/21/20 05:20 Labs: Laboratory Results - last 24 hr 08/21/20 05:20 WBC 14.0 H RBC 3.34 L Hgb 10.2 L Hct 31.4 L MCV 94.0 MCH 30.5 MCHC 32.5 RDW Std Deviation 44.9 H RDW Coeff of Diana 12.9 Plt Count 267 MPV 9.2 ROS Constitutional Constitutional: Denies fever(s) Cardiovascular Cardiovascular: Denies chest pain, dyspnea or lightheadedness Gastrointestinal Gastrointestinal: Reports abdominal pain; Denies constipation or diarrhea Neurologic Neurologic: Denies dizziness or headache(s) Physical Exam Const alert, oriented x3, no apparent distress, average body habitus, healthy appearing and well nourished HEENT normocephalic Head and Scalp: atraumatic Eyes PERRL and EOMs intact bilaterally Neck full ROM Lymph Lymphatic: no lymphadenopathy noted Resp normal respiratory effort, no retractions and no use of accessory muscles Cardio regular rate GI soft to palpation, non-tender and non-distended Inspection: incision intact and other (dressing in place) Palpation: other Other Details: fundus firm Extremity normal to inspection and no clubbing, cyanosis or edema Skin no rashes or lesions noted Neuro no focal motor deficits and no sensory deficits noted Psych mental status grossly normal, affect normal and speech normal Assessment & Plan (1) Delivery by section: COMMENT: M/SM 5 cm recurrent decels, bradycardia. 41 IOL PLAN: s/p LTCS PPD # 1 1. routine post care 2. breast feeding- support given 3. rh positive 4. rubella immune
[2020-08-21] MEDS: Naproxen 250 MG Tablet 500 MG PO ×2 (13:42→20:41)
[2020-08-21 20:25] VITALS: BP 124/70; PULSE 90; RESP 16; TEMP 36.3; O2SAT 98
[2020-08-21] MEDS: busPIRone 5 MG Tablet 10 MG PO (23:03)
[2020-08-21] MEDS: buPROPion (XL) 150 MG TABLET.XL PO (23:03)
[2020-08-22] MEDS: Acetaminophen 500 MG Tablet 1000 MG PO ×2 (00:45→05:34)
[2020-08-22 02:10] VITALS: BP 113/62; PULSE 83; RESP 16; TEMP 36.4; O2SAT 99
[2020-08-22] MEDS: Naproxen 250 MG Tablet 500 MG PO (05:33)
--- NOTE | 2020-08-22 07:43 | PCM.PN.OB ---
Subjective Subjective Patient doing well without complaints. Tolerating PO. Ambulating and voiding without difficulty. feeding well. Denies chest pain, shortness of breath, calf pain/swelling, fevers, chills, lightheadedness. Objective Data Objective Data Vital Signs: Vital Signs Temp Pulse Resp BP Pulse Ox 97.5 F L 83 16 113/62 99 08/22/20 02:10 08/22/20 02:10 08/22/20 02:10 08/22/20 02:10 08/22/20 02:10 Oxygen Delivery Method Room Air Weight: 210 lb 1.608 oz Body Mass Index (BMI) 33.9 Intake & Output: Intake and Output for Last 24 Hours 08/20/20 08/21/20 08/22/20 23:59 23:59 23:59 Intake Total 3072.66 / 3072.66 Output Total 700 / 700 50 / 50 Balance 2372.66 / 2372.66 -50 / -50 Lab / Micro Data Result Diagrams: 08/21/20 05:20 ROS Constitutional Constitutional: Reports systems reviewed and no addt'l complaints, except as documented Cardiovascular Cardiovascular: Reports systems reviewed and no addt'l complaints, except as documented Respiratory/Chest Respiratory/Chest: Reports systems reviewed and no addt'l complaints, except as documented Gastrointestinal Gastrointestinal: Reports systems reviewed and no addt'l complaints, except as documented Physical Exam Const alert, oriented x3 and no apparent distress HEENT Head and Scalp: atraumatic Resp normal respiratory effort GI soft to palpation and non-tender Inspection: incision intact, healing well and drainage (none) Bimanual Exam - Vag & Uterus: uterus non-tender Uterus Palpation: uterus fundus firm (below Umbilicus) Assessment & Plan (1) History of tetanus, diphtheria, and acellular pertussis booster vaccination (Tdap): COMMENT: 05/22/20 (2) Anxiety and depression: COMMENT: currently on Wellbutrin BID (category B) and Buspar BID (category B). 05/22 stable; 07/02 stable (3) Delivery by section: COMMENT: SHM/SM 5 cm recurrent decels, bradycardia. 41 IOL (4) Status post bilateral salpingectomy: (5) bradycardia:
[2020-08-22 09:00] VITALS: BP 119/80; PULSE 74; RESP 16; TEMP 36.2
[2020-08-22] MEDS: Senna/Docusate Sodium 1 Tablet PO (10:28)
--- NOTE | 2020-08-22 11:25 | CASEMGMT ---
Social Work Brief Assessment Labor and Delivery Unit Patient Address: [address] [place] [address] [address], [place] [address] Phone number: [phone] Date of Referral/Notification: 08-20-20 Time of Referral:1902 Referred By: Dr. Serrato Date of Intervention: 08.22.2020 Time of Intervention: 1115 Reason for Referral: Maternal history of depression and anxiety Informant: Medical record and mother of baby (MOB) Florence Jones; father of baby (FOB) Andrew Jones present for part of conversation. History: TIFFANY is a 29 year old female, G1, P0 to 1 after delivering baby boy Migel on 08.20.2020. care started at 9 weeks and regular thereafter. Migel delivered via primary caesarian section, weighing 7 pounds 6 ounces. Apgars 8 and 9 at 1 and 5 minutes of life. TIFFANY has been to the [facility] for 7 years. Denies any domestic or intimate partner violence concerns. MOB and FOB are both gainfully employed. MOB works at [employer]. MOB with history of depression and anxiety, has tried counseling in the past and various medications. Reports has found medications to be helpful. On Wellbutrin and Buspar and plans to stay on this during the period. Denies history of suicidal ideations. Denies any substance use issues. Assessment: Met with MOB, later joined by the FOB. MOB reports to have needed supplies to care for baby, and adequate support at home. FOB will be home through the weekend to help and then TIFFANY's mom will come over to help out next week. No voiced concern by MOB or FOB with home going. Educated to depression, risk factors, and encouraged MOB to talk with health care provider should symptoms change and/or become distressing. MOB reports she felt much better during the than had anticipated, and plans to stay on medications. Broached that fathers can also experience . Provided parents with information on mood and anxiety disorders including resource for support. [facility] resource list, HMG information, shaken baby prevention, and safe sleeping information also provided. No voiced concerns by nursing staff regarding mother/child interactions or bonding. Plan: MOB and baby to home. Resources provided. MOB will have help at home from family, and also established with a medication regiment for emotional health needs. No further needs requested or indicated. -BAO Dawn MSW *Information documented in this assessment generated with [employer]*
--- NOTE | 2020-08-26 14:38 | NURSING ---
Mother doing pretty well, states baby is up a lot at night and sleeps better during the day. Saw arts and humanities council director today and was told she could go ahead and supplement with formula because baby wasn't always latching well. Mother denies need to see a executive search consultant and says she will probably need to use formula when she goes back to work so is not upset by using it. Denies further needs or questions and reports being satisfied with her care.
== END 2020-08-22 12:40 | disposition home or self-care (01) | DRG 785 ==
PROVIDERS: Admitting Provider Obstetrics & Gynecology; PCP Family Medicine; Referring Provider Obstetrics & Gynecology; Visit Provider Obstetrics & Gynecology
DX: O76 Abnormality in fetal heart rate and rhythm complicating labor and delivery (principal); O77.0 Labor and delivery complicated by meconium in amniotic fluid; O48.0 Post-term pregnancy; Z3A.40 40 weeks gestation of pregnancy; Z37.0 Single live birth; Z30.2 Encounter for sterilization; O99.344 Other mental disorders complicating childbirth; F41.8 Other specified anxiety disorders; Z86.16 Personal history of COVID-19; Z87.891 Personal history of nicotine dependence
CPT/HCPCS: 59025; 59050; 85025; 85027; 86762; 86850; 86900; 86901; 88302; 88307; 99218; 99251; J7120; A4216; G0378; G0463; J2405

== ENCOUNTER → 2020-10-03 16:06 | Outpatient (CLI) | payer OTHER, SELFPAY ==
[2020-10-03 09:55] VITALS: BMI 33.9
[2020-10-09 11:25] LABS: HPV APTIMA, High Risk Negative (Negative)
== END ==
PROVIDERS: PCP Family Medicine; Referring Provider Obstetrics & Gynecology; Visit Provider Obstetrics & Gynecology
DX: Z12.4 Encounter for screening for malignant neoplasm of cervix (principal)
CPT/HCPCS: 87624; 88175; G0145

== ENCOUNTER → 2023-01-07 | Outpatient (CLI) | payer OTHER, SELFPAY ==
[2023-01-07 12:33] LABS: Absolute Lymphocyte Count 1.84 X10^3/uL (0.83-4.51); Absolute Neutrophil Count 2.4 X10^3/uL (2.0-7.7); Basophil# 0.04 X10^3/uL; Basophil% 0.8 % (0-1); Eosinophil# 0.07 X10^3/uL; Eosinophils% 1.4 % (0-5); Hematocrit 39.7 % (37-47); Hemoglobin 12.6 g/dL (12.0-15.0); Lymphocyte # 1.84 X10^3/ul (0.83-4.51); Lymphocyte % 37.2 % (19-41); Mean Corp Hgb Conc 31.7 g/dL (32-36); Mean Corpuscular Hgb 29.6 pg (27.0-32.0); Mean Corpuscular Volume 93.4 fL (81-99); Mean Platelet Vol. 9.5 fl (6.2-12.0); Monocyte# 0.56 X10^3/uL; Monocyte% 11.3 % (0-10); NRBC Flagged by Analyzer 0 % (0-5); Neutrophil # 2.44 X10^3/uL (2.7-7.7); Neutrophil % 49.3 % (47-70); Platelet Count 258 K/mm3 (150-450); RBC Distribution Width CV 12.7 % (11.6-14.6); RBC Distribution Width SD 43.6 fl (35.1-43.9); Red Blood Count 4.25 M/mm3 (4.2-5.4)
[2023-01-07 13:20] LABS: AST(SGOT) 17 U/L (15-37); Alanine Aminotransfer ALT/SGPT 22 U/L (13-56); Albumin, Serum 3.5 g/dL (3.2-5.0); Alkaline Phosphatase 91 U/L (45-117); Anion Gap 6 (5-15); BUN 10 mg/dL (7-18); BUN/Creat Ratio 12.5 RATIO (10-20); Calcium,Total 8.6 mg/dL (8.5-10.1); Chloride 107 mmol/L (98-107); Cholesterol 129 mg/dL (200); EST Glomerular Filtration Rate 88 mL/min (>60); Est Glom Filt Rate - Afr Amer 106 mL/min (>60); Globulin 3.6 g/dL (2.2-4.2); Glucose 78 mg/dL (74-106); High Density Lipoprotein 63 mg/dL; Potassium 3.9 mmol/L (3.5-5.1); Protein, Total 7.1 g/dL (6.4-8.2); Sodium Level 137 mmol/L (136-145); Thyroid Stim Hormone (TSH) 1.93 uIU/mL (0.358-3.74); Triglycerides 45 mg/dL; Very Low Density Lipoprotein 9 mg/dL (5-40)
== END | disposition home or self-care (01) ==
LOC: BFHLAB 09:26
PROVIDERS: PCP Family Medicine; Referring Provider Family Medicine; Visit Provider Family Medicine
DX: Z00.00 Encounter for general adult medical examination without abnormal findings (principal); Z13.220 Encounter for screening for lipoid disorders; R53.83 Other fatigue
CPT/HCPCS: 36415; 80053; 80061; 84443; 85025

== ENCOUNTER → 2025-04-02 | Outpatient (CLI) | payer OTHER, SELFPAY ==
[2025-04-09 09:08] LABS: HPV APTIMA, High Risk Negative (Negative)
== END | disposition home or self-care (01) ==
LOC: LABSPEC 16:31
PROVIDERS: PCP Family Medicine; Visit Provider Nurse Practitioner Family
DX: Z12.4 Encounter for screening for malignant neoplasm of cervix (principal)
CPT/HCPCS: 87624; 88175; G0145